=== PATIENT | male | born 1985 | race Caucasian/White ===

== ENCOUNTER 2021-10-20 13:51 | Emergency (ER) | payer OTHER ==
[~2021-10-20] VITALS: Wt 90.7 kg
[~2021-10-20 13:51] MED LIST: CORDROL20 MG PO; NKHM
[2021-10-20 14:59] VITALS: BP 114/70
[2021-10-20] MEDS ORDERED: METOPROLOL SUCC25 M2 PO (15:13)
== END 2021-10-20 15:30 | disposition home or self-care (01) ==
LOC: ED 13:51
DX: R00.0 Tachycardia, unspecified (principal)